=== PATIENT | male | born 1955 | race Caucasian/White ===

== ENCOUNTER → 2021-10-19 | Outpatient (CLI) | payer MEDICARE, OTHER ==
--- NOTE | 2021-10-19 16:16 | Diagnostic Imaging Report ---
INDICATION: Right knee pain. TIME OF EXAM: 3:09 PM. TECHNIQUE: Four views of the right knee were obtained. FINDINGS: There is medial and patellofemoral compartmental degenerative change with joint space narrowing and marginal spurring. There is some spurring of the tibial spines. No fracture, dislocation, or effusion is seen. IMPRESSION: Degenerative changes. No acute bony abnormality is detected. Dictated by: Dictated on workstation # [id number]
== END ==
LOC: ORTHO 14:57
PROVIDERS: ATTEND Orthopaedic Surgery
DX: M17.11 Unilateral primary osteoarthritis, right knee (principal)
CPT/HCPCS: 20610; 73564; G0463